=== PATIENT | female | born 1955 | race Caucasian/White ===

== ENCOUNTER 2021-07-19 06:53 | Outpatient (CLI) | payer MEDICARE | END 2021-07-19 23:59 | disposition home or self-care (01) | LOC: CVU 06:53 | PROVIDERS: ATTEND Internal Medicine Clinical Cardiac Electrophysiology | DX: I08.2 Rheumatic disorders of both aortic and tricuspid valves (principal); R01.1 Cardiac murmur, unspecified | CPT/HCPCS: 93306; 93356 ==

== ENCOUNTER 2021-07-27 14:32 | Outpatient (CLI) | payer MEDICARE | END 2021-07-27 23:59 | disposition home or self-care (01) | LOC: CFH 14:32 | PROVIDERS: ATTEND Family Medicine | DX: Z12.31 Encounter for screening mammogram for malignant neoplasm of breast (principal); N63.20 Unspecified lump in the left breast, unspecified quadrant | CPT/HCPCS: 77063; 77067 ==